=== PATIENT | male | born 1955 | race Asian ===

== ENCOUNTER 2021-06-24 15:09 | Emergency (ER) | payer OTHER ==
--- NOTE | 2021-06-24 16:17 | RAD REPORT ---
EXAM DESCRIPTION: CT - Head Brain Wo Cont - 06/24/2021 4:04 pm CLINICAL HISTORY: HEADACHE COMPARISON: No comparisons TECHNIQUE: All CT scans are performed using dose optimization technique as appropriate and may inclu de automated exposure control or mA/KV adjustment according to patient size. FINDINGS: No intracranial hemorrhage, hydrocephalus or extra-axial fluid collection.No areas of brai n edema or evidence of midline shift. Ethmoid air cell thickening. The calvarium is intact. IMPRESSION: No acute intracranial abnormality.
[2021-06-24] MEDS ORDERED: ACETAMINOPHEN 500 MG TAB ONE (16:33)
[2021-06-24] MEDS ORDERED: AMLODIPINE 10 MG TAB ONE (17:00)
[2021-06-24 17:04] LABS: RBC Red Blood Cell Count 4.64 M/uL (4.33-5.43)
[2021-06-24 17:05] LABS: Basophils % 0.7 % (0-1.3); Hematocrit 41.3 % (39.6-49.0); Lymphocytes % 28.2 % (15.3-44.8); MPV 7.3 fL (7.6-11.3)
[2021-06-24 17:27] LABS: ALT/SGPT 26 U/L (12-78); AST/SGOT 14 U/L (15-37); Albumin 3.7 g/dL (3.4-5.0); Alkaline Phosphatase 49 U/L (45-117); BUN Blood Urea Nitrogen 21 mg/dL (7-18); Bicarbonate 29 mmol/L (21-32); Bilirubin Direct < 0.1 mg/dL (0-0.2); Bilirubin Total 0.3 mg/dL (0.2-1.0); Glucose Level 138 mg/dL (74-106); Magnesium 2.8 mg/dL (1.8-2.4); Potassium 4.5 mmol/L (3.5-5.1); Protein, Total 7.7 g/dL (6.4-8.2); Sodium Level 142 mmol/L (136-145)
[2021-06-24] MEDS ORDERED: NA CHLORIDE 0.9% 500 ML ONE (17:41)
--- NOTE | 2021-06-24 18:11 | ER ---
Nurse's Notes [facility] Name: Rojas Mario Age: 66 yrs Sex: Male : 1955 Arrival Date: 06/24/2021 Time: 15:11 Bed 11 Private MD: Diagnosis: Headache;Hypertensive heart disease without heart failure Presentation: 06/24 15:19 Chief complaint: Patient states: Discomfort to top of head that began yesterday. Denies ss nausea/ dizziness. Coronavirus screen: Client denies travel out of the [place] in the last 14 days. Ebola Screen: Patient denies exposure to infectious person. Patient denies travel to an Ebola-affected area in the 21 days before illness onset. Initial Sepsis Screen: Does the patient meet any 2 criteria? No. Patient's initial sepsis screen is negative. Does the patient have a suspected source of infection? No. Patient's initial sepsis screen is negative. Risk Assessment: Do you want to hurt yourself or someone else? Patient reports no desire to harm self or others. Onset of symptoms was June 23, 2021. 15:19 Method Of Arrival: Ambulatory ss 15:19 Acuity: MONSTER 3 ss Historical: - Allergies: 15:20 No Known Allergies; ss - Home Meds: 15:20 Unknown BP medication [Active]; ss - PMHx: 15:20 Hypertensive disorder; ss - PSHx: 15:20 Cholecystectomy; ss - Immunization history:: Client reports receiving the 2nd dose of the Covid vaccine. - Social history:: Smoking status: Patient denies any tobacco usage or history of. Screenin:34 VAN Screening: Arm Drift: Patient shows no arm weakness. Visual Disturbance: No visual ss disturbance noted. Aphasia: No aphasia noted. Neglect: No neglect noted. 16:00 Abuse screen: Denies threats or abuse. Nutritional screening: No deficits noted. tw2 Tuberculosis screening: No symptoms or risk factors identified. Fall Risk None identified. Assessment: 15:34 Reassessment: Verbal order received from FARHAD Hayes to order CT head without ss contrast. Pt and family member notified of wait time and placed out in lobby. Ambulated with steady gait. VAN scoring negative. 15:56 General: Appears in no apparent distress. Behavior is calm, cooperative, appropriate tw2 for age. Pain: Complains of pain in top of head, left frontal area and right frontal area. Neuro: Level of Consciousness is awake, alert, obeys commands, Oriented to person, place, time, situation. Neuro: Garment Form Assembler are equal bilaterally Gait is steady, Speech is normal. Cardiovascular: Patient's skin is warm and dry. Respiratory: Airway is patent Respiratory effort is even, unlabored, Respiratory pattern is regular, symmetrical. GI: No signs and/or symptoms were reported involving the gastrointestinal system. Derm: Skin is healthy with good turgor, Skin is dry, Skin temperature is warm. 16:26 Reassessment: Patient appears in no apparent distress at this time. No changes from tw2 previously documented assessment. Patient and/or family updated on plan of care and expected duration. Pain level reassessed. Patient is alert, oriented x 3, equal unlabored respirations, skin warm/dry/pink. provider at bedside at this time. updating POC. 17:47 Reassessment: Patient appears in no apparent distress at this time. No changes from tw2 previously documented assessment. Patient and/or family updated on plan of care and expected duration. Pain level reassessed. Patient is alert, oriented x 3, equal unlabored respirations, skin warm/dry/pink. 18:31 Reassessment: Patient appears in no apparent distress at this time. No changes from tw2 previously documented assessment. Patient and/or family updated on plan of care and expected duration. Pain level reassessed. Patient is alert, oriented x 3, equal unlabored respirations, skin warm/dry/pink. Vital Signs: 15:19 BP 162 / 97; Pulse 79; Resp 16; Temp 98.3(TE); Pulse Ox 100% on R/A; Weight 81.65 kg; ss Height 5 ft. 6 in. (167.64 cm); Pain 4/10; 16:19 BP 141 / 92; Pulse 66; Resp 18; Pulse Ox 99% on R/A; tw2 17:40 BP 141 / 195; Pulse 54; Resp 17; Pulse Ox 99% on R/A; tw2 17:47 BP 132 / 92; Pulse 57; Resp 17; Pulse Ox 99% on R/A; tw2 18:31 BP 139 / 84; Pulse 65; Resp 17; Pulse Ox 100% on R/A; tw2 15:19 Body Mass Index 29.05 (81.65 kg, 167.64 cm) NIH Stroke Scale Scores: 15:34 NIHSS Score: 0 ED Course: 15:11 Patient arrived in ED. am2 15:20 Triage completed. ss 15:20 Arm band placed on left wrist. ss 15:56 Bed in low position. Call light in reach. Adult w/ patient. Pulse ox on. NIBP on. tw2 15:59 Dandre Khalil PA is PHCP. cp 15:59 Zoran De Los Santos MD is Attending Physician. cp 16:00 Jane Prince RN is Primary Nurse. tw2 16:03 CT Head Brain wo Cont In Process Unspecified. EDMS 16:40 Inserted saline lock: 20 gauge in right antecubital area, using aseptic technique. tw2 Blood collected. 18:32 No provider procedures requiring assistance completed. IV discontinued, intact, tw2 bleeding controlled, No redness/swelling at site. Pressure dressing applied. Administered Medications: 16:40 Drug: Tylenol 1000 mg Route: PO; tw2 17:47 Follow up: Response: No adverse reaction tw2 17:05 Drug: amLODIPine 10 mg Route: PO; tw2 18:31 Follow up: Response: No adverse reaction tw2 17:46 Drug: NS 0.9% 500 ml Route: IV; Rate: bolus; Site: right antecubital; tw2 18:31 Follow up: Response: No adverse reaction; IV Status: Completed infusion; IV Intake: tw2 500ml Intake: 18:31 IV: 500ml; Total: 500ml. tw2 Outcome: 18:10 Discharge ordered by . cp 18:32 Discharged to home ambulatory, with family. tw2 18:32 Condition: stable 18:32 Discharge instructions given to patient, family, Instructed on discharge instructions, follow up and referral plans. Demonstrated understanding of instructions, follow-up care. 18:32 Patient left the ED. tw2 NIH Stroke Scale - NIH Stroke Score Date: 06/24/2021 Time: 15:34 Total Score = 0 1a. Level of Consciousness (LOC) - 0(Alert) 1b. Level of Consciousness (LOC) (Month \T\ Age) - 0(Both) 1c. LOC Commands (Open \T\ Closes Eyes/Heel Packer) - 0(Both) 2. Best Gaze (Lateral Gaze Paresis) - 0(Normal) 3. Visual Field Loss - 0(No visual loss) 4. Facial Palsy - 0(Normal) 5a. Left Arm: Motor (10-second hold) - 0(No drift) 5b. Right Arm: Motor (10-second hold) - 0(No drift) 6a. Left Leg: Motor (5-second hold - always test supine) - 0(No drift) 6b. Right Leg: Motor (5-second hold - always test supine) - 0(No drift) 7. Limb Ataxia (finger/nose \T\ heel/robert - test with eyes open) - 0(Absent) 8. Sensory Loss (pinprick arms/legs/face) - 0(Normal) 9. Best Language: Aphasia (description/naming/reading) - 0(No aphasia) 10. Dysarthria (speech clarity - read or repeat words) - 0(Normal) 11. Extinction and Inattention (visual/tactile/auditory/spatial/personal) - 0(No abnormality) Initials: Signatures: Dispatcher [employer] Kalli Palm RN RN ss Dandre Khalil PA PA cp Wise, Tara, RN RN tw2 Alexa Jaimes am2
--- NOTE | 2021-06-24 18:12 | EDPHYS ---
Physician Documentation [facility] Name: Rojas Mario Age: 66 yrs Sex: Male : 1955 Arrival Date: 06/24/2021 Time: 15:11 Bed 11 Private MD: ED Physician Zoran De Los Santos HPI: 06/24 16:30 This 66 yrs old Male presents to ER via Ambulatory with complaints of head pain. cp 16:30 The patient complains of pain to the top of head. cp 16:30 Onset: The symptoms/episode began/occurred yesterday. cp 16:30 The patient describes the headache as a pressure. Associated signs and symptoms: The cp patient has no apparent associated signs or symptoms. 16:30 Severity of symptoms: in the emergency department the pain has improved, a " 4" out of cp "10". 16:30 History translated by son. cp Historical: - Allergies: 15:20 No Known Allergies; ss - Home Meds: 15:20 Unknown BP medication [Active]; ss - PMHx: 15:20 Hypertensive disorder; ss - PSHx: 15:20 Cholecystectomy; ss - Immunization history:: Client reports receiving the 2nd dose of the Covid vaccine. - Social history:: Smoking status: Patient denies any tobacco usage or history of. ROS: 16:35 Neuro: Positive for headache, of the top of head, Negative for altered mental status, cp dizziness, numbness, syncope, visual changes. 16:35 Eyes: Negative for injury, pain, redness, and discharge. cp 16:35 Constitutional: Negative for body aches, chills, fever, poor PO intake. 16:35 ENT: Negative for ear pain, sore throat, difficulty swallowing, difficulty handling secretions. 16:35 Neck: Negative for pain with movement, pain at rest, stiffness. 16:35 Cardiovascular: Negative for chest pain, edema, palpitations. 16:35 Respiratory: Negative for cough, shortness of breath, wheezing. 16:35 Abdomen/GI: Negative for abdominal pain, nausea, vomiting, and diarrhea. 16:35 Back: Negative for pain at rest, pain with movement. 16:35 All other systems are negative. Exam: 16:40 Constitutional: The patient appears in no acute distress, alert, awake, cp non-diaphoretic, non-toxic, well developed, well nourished. 16:40 Head/Face: Normocephalic, atraumatic. cp 16:40 Eyes: Periorbital structures: appear normal, Pupils: equal, round, and reactive to light and accomodation, Extraocular movements: intact throughout, Conjunctiva: normal, no exudate, no injection, Sclera: no appreciated abnormality, Lids and lashes: appear normal, bilaterally. 16:40 ENT: External ear(s): are unremarkable, Ear canal(s): are normal, clear, TM's: dullness, bilaterally, Nose: is normal, Mouth: Lips: moist, Oral mucosa: moist, Posterior pharynx: Airway: no evidence of obstruction, patent. 16:40 Neck: C-spine: vertebral tenderness, is not appreciated, crepitus, is not appreciated, ROM/movement: is normal, is supple, without pain, no range of motions limitations, no nuchal rigidity. 16:40 Chest/axilla: Inspection: normal. 16:40 Cardiovascular: Rate: normal, Rhythm: regular, Edema: is not appreciated, JVD: is not appreciated. 16:40 Respiratory: the patient does not display signs of respiratory distress, Respirations: normal, no use of accessory muscles, no retractions, labored breathing, is not present, Breath sounds: are clear throughout, no decreased breath sounds, no stridor, no wheezing. 16:40 Abdomen/GI: Exam negative for discomfort, distension, guarding, Inspection: abdomen appears normal. 16:40 Neuro: Orientation: to person, place \\T\\ time. Mentation: is normal, Cerebellar function: Romberg testing is negative, Motor: moves all fours, strength is normal, Sensation: is normal. 17:08 ECG was reviewed by the Attending Physician. cp Vital Signs: 15:19 BP 162 / 97; Pulse 79; Resp 16; Temp 98.3(TE); Pulse Ox 100% on R/A; Weight 81.65 kg; ss Height 5 ft. 6 in. (167.64 cm); Pain 4/10; 16:19 BP 141 / 92; Pulse 66; Resp 18; Pulse Ox 99% on R/A; tw2 17:40 BP 141 / 195; Pulse 54; Resp 17; Pulse Ox 99% on R/A; tw2 17:47 BP 132 / 92; Pulse 57; Resp 17; Pulse Ox 99% on R/A; tw2 18:31 BP 139 / 84; Pulse 65; Resp 17; Pulse Ox 100% on R/A; tw2 15:19 Body Mass Index 29.05 (81.65 kg, 167.64 cm) ss NIH Stroke Scale Scores: 15:34 NIHSS Score: 0 ss MDM: 16:16 Patient medically screened. cp 17:00 Differential diagnosis: hyponatremia, intracerebral hemorrhage, migraine, neoplasm, cp sinusitis, tension headache. 18:10 Data reviewed: vital signs, nurses notes, lab test result(s), EKG, radiologic studies, cp CT scan. 18:10 Test interpretation: by ED physician or midlevel provider: ECG. Counseling: I had a cp detailed discussion with the patient and/or guardian regarding: the historical points, exam findings, and any diagnostic results supporting the discharge/admit diagnosis, the presence of at least one elevated blood pressure reading (>120/80) during this emergency department visit, lab results, the need for outpatient follow up, a family practitioner, an surveillance system monitor, to return to the emergency department if symptoms worsen or persist or if there are any questions or concerns that arise at home. Response to treatment: the patient's symptoms have markedly improved after treatment, and as a result, I will discharge patient. 06/24 16:29 Order name: Basic Metabolic Panel; Complete Time: 17:31 06/24 17:31 Interpretation: Normal except: CL 108; GLUC 138; BUN 21; GFR 76. 06/24 16:29 Order name: CBC with Diff; Complete Time: 17:31 06/24 15:34 Order name: CT Head Brain wo Cont; Complete Time: 16:20 ss 06/24 16:29 Order name: LFT's; Complete Time: 17:31 06/24 16:29 Order name: Magnesium; Complete Time: 17:31 06/24 16:29 Order name: EKG; Complete Time: 16:30 06/24 16:29 Order name: Cardiac monitoring; Complete Time: 17:05 06/24 16:29 Order name: EKG - Nurse/Tech; Complete Time: 17:05 06/24 16:29 Order name: IV Saline Lock; Complete Time: 17:05 06/24 16:29 Order name: Labs collected and sent; Complete Time: 17:05 cp 06/24 16:29 Order name: O2 Per Protocol; Complete Time: 16:32 cp 06/24 16:29 Order name: O2 Sat Monitoring; Complete Time: 16:32 cp EC:08 Rate is 57 beats/min. Rhythm is regular. KS interval is prolonged at 250 msec. QRS cp interval is normal. QT interval is normal. Interpreted by me. Reviewed by me. Administered Medications: 16:40 Drug: Tylenol 1000 mg Route: PO; tw2 17:47 Follow up: Response: No adverse reaction tw2 17:05 Drug: amLODIPine 10 mg Route: PO; tw2 18:31 Follow up: Response: No adverse reaction tw2 17:46 Drug: NS 0.9% 500 ml Route: IV; Rate: bolus; Site: right antecubital; tw2 18:31 Follow up: Response: No adverse reaction; IV Status: Completed infusion; IV Intake: tw2 500ml Disposition: 06/25 07:15 Co-signature as Attending Physician, Zoran De Los Santos MD I agree with the assessment and kdr plan of care. Disposition Summary: 06/24/21 18:10 Discharge Ordered Location: Home cp Problem: new cp Symptoms: have improved cp Condition: Stable cp Diagnosis - Headache cp - Hypertensive heart disease without heart failure cp Followup: cp - With: Private Physician - When: 2 - 3 days - Reason: Recheck today's complaints Discharge Instructions: - Discharge Summary Sheet cp - General Headache Without Cause cp - How to Take Your Blood Pressure, [id number] cp - Form - Blood Pressure Record Sheet cp - Aspirin and Your Heart cp Forms: - Medication Reconciliation Form cp - Thank You Letter cp - Antibiotic Education cp - Prescription Opioid Use cp NIH Stroke Scale - NIH Stroke Score Date: 06/24/2021 Time: 15:34 Total Score = 0 1a. Level of Consciousness (LOC) - 0(Alert) 1b. Level of Consciousness (LOC) (Month \\T\\ Age) - 0(Both) 1c. LOC Commands (Open \\T\\ Closes Eyes/Emblem Cutter) - 0(Both) 2. Best Gaze (Lateral Gaze Paresis) - 0(Normal) 3. Visual Field Loss - 0(No visual loss) 4. Facial Palsy - 0(Normal) 5a. Left Arm: Motor (10-second hold) - 0(No drift) 5b. Right Arm: Motor (10-second hold) - 0(No drift) 6a. Left Leg: Motor (5-second hold - always test supine) - 0(No drift) 6b. Right Leg: Motor (5-second hold - always test supine) - 0(No drift) 7. Limb Ataxia (finger/nose \\T\\ heel/robert - test with eyes open) - 0(Absent) 8. Sensory Loss (pinprick arms/legs/face) - 0(Normal) 9. Best Language: Aphasia (description/naming/reading) - 0(No aphasia) 10. Dysarthria (speech clarity - read or repeat words) - 0(Normal) 11. Extinction and Inattention (visual/tactile/auditory/spatial/personal) - 0(No abnormality) Initials: ss Signatures: Dispatcher [employer] Zoran Foster MD MD kdr Smirch, Shelby, RN RN ss Dandre Khalil PA PA cp Wise, Tara RN RN tw2
[2021-06-24 18:38] VITALS: TEMP 98.3
[2021-06-24 18:43] VITALS: BP 139/84; O2SAT 100
--- NOTE | 2021-06-25 13:19 | EKG ---
Test Date: 2021-06-24 Test Time: 17:01:14 Insurance Office Manager: DERRICK MEASUREMENT RESULTS: Intervals: Rate: 57 KS: 250 QRSD: 92 QT: 404 QTc: 393 [place]: P: 35 KS: 250 QRS: 24 T: 29 INTERPRETIVE STATEMENTS: Sinus bradycardia with 1st degree AV block Otherwise normal ECG No previous ECG available for comparison Electronically Signed On 06-25-21 13:16:25 MANAGER PROCESS EXCELLENCE by Prakash White
== END 2021-06-24 18:32 | disposition home or self-care (01) ==
LOC: ER 15:09
DX: I11.9 Hypertensive heart disease without heart failure (principal); I10 Essential (primary) hypertension
CPT/HCPCS: 93005; 85025; 80048; 36415; 83735; 80076; 70450; 96360; 99284; J7040

== ENCOUNTER 2022-12-18 13:47 | Emergency (ER) | payer OTHER ==
[2022-12-18] MEDS ORDERED: cloNIDine HCL 0.1 MG TAB ONE (14:28)
[2022-12-18] MEDS ORDERED: PANTOPRAZOLE 40MG TABLET PO ONE (14:28)
[2022-12-18] MEDS ORDERED: CEFTRIAXONE 1000 MG/VIAL ONE (14:29)
--- NOTE | 2022-12-18 14:52 | ER ---
Nurse's Notes [facility] Name: Rojas Mario Age: 67 yrs Sex: Male : 1955 Arrival Date: 12/18/2022 Time: 13:47 Bed 15 Private MD: Diagnosis: Acute pharyngitis, unspecified;Gastro-esophageal reflux disease without esophagitis;Essential (primary) hypertension Presentation: 12/18 14:03 Chief complaint: Sore throat x 2-3 days. Coronavirus screen: At this time, the client hb does not indicate any symptoms associated with coronavirus-19. Ebola Screen: No symptoms or risks identified at this time. Initial Sepsis Screen: Does the patient meet any 2 criteria? No. Patient's initial sepsis screen is negative. Does the patient have a suspected source of infection? No. Patient's initial sepsis screen is negative. Risk Assessment: Do you want to hurt yourself or someone else? Patient reports no desire to harm self or others. 14:03 Method Of Arrival: Ambulatory hb 14:05 Onset of symptoms was December 16, 2022. hb 14:05 Acuity: MONSTER 4 hb Historical: - Allergies: 14:04 No Known Allergies; hb - Home Meds: 14:04 unknown BP medication [Active]; hb - PMHx: 14:04 Hypertensive disorder; hb - PSHx: 14:04 Cholecystectomy; hb - Immunization history:: Adult Immunizations up to date. - Social history:: Smoking status: Patient denies any tobacco usage or history of. Screenin:00 [facility] ED Fall Risk Assessment (Adult) History of falling in the last 3 months, kc6 including since admission No falls in past 3 months (0 pts) Confusion or Disorientation No (0 pts) Intoxicated or Sedated No (0 pts) Impaired Gait No (0 pts) Mobility Assist Device Used No (0 pt) Altered Elimination No (0 pt) Score/Fall Risk Level 0 - 2 = Low Risk Oriented to surroundings, Maintained a safe environment, Educated pt \\T\\ family on fall prevention, incl call for assistance when getting out of bed, Assessed \\T\\ reinforced patient's understanding of fall precautions, Hourly rounding (assess needs \\T\\ fall precautionary measures) done. Abuse screen: Denies threats or abuse. Denies injuries from another. Nutritional screening: No deficits noted. Tuberculosis screening: No symptoms or risk factors identified. Assessment: 14:00 General: Appears in no apparent distress. comfortable, Behavior is calm, cooperative, kc6 appropriate for age. Pain: Complains of pain in "sore throat". Neuro: Grossman Agitation-Sedation Scale (RASS): 0 - Alert and Calm Level of Consciousness is awake, alert, obeys commands, Oriented to person, place, time, situation, Appropriate for age. Cardiovascular: Capillary refill < 3 seconds Chest pain is denied. Respiratory: Airway is patent Trachea midline Respiratory effort is even, unlabored, Respiratory pattern is regular, symmetrical, Breath sounds are clear bilaterally. GI: Reports indigestion. : No signs and/or symptoms were reported regarding the genitourinary system. EENT: Throat is reddened bilaterally with gag reflex present. Derm: No signs and/or symptoms reported regarding the dermatologic system. Skin is intact, Skin is pink, warm \\T\\ dry. Musculoskeletal: No signs and/or symptoms reported regarding the musculoskeletal system. Circulation, motion, and sensation intact. Capillary refill < 3 seconds, Range of motion: intact in all extremities. Vital Signs: 14:03 BP 211 / 119; Pulse 76; Resp 16; Temp 97.9(TE); Pulse Ox 99% on R/A; Weight 81.65 kg; hb Height 5 ft. 10 in. ; Pain 3/10; 14:45 BP 176 / 120; Pulse 86; Resp 19 S; Pulse Ox 98% on R/A; kc6 14:03 Body Mass Index 25.83 (81.65 kg, 177.8 cm) hb 14:03 Pain Scale: Adult hb ED Course: 13:48 Patient arrived in ED. am2 13:50 Angelina Antunez FNP-C is [facility]. snw 13:50 Zoran De Los Santos MD is Attending Physician. snw 13:52 Sharifa Veras RN is Primary Nurse. kc6 14:00 Patient has correct armband on for positive identification. Bed in low position. Call kc6 light in reach. Side rails up X 1. Adult w/ patient. 14:05 Triage completed. hb 14:05 Arm band placed on. hb 15:00 No provider procedures requiring assistance completed. Patient did not have IV access kc6 during this emergency room visit. Administered Medications: 14:30 Drug: Rocephin (cefTRIAXone) IM 1 grams Route: IM; Site: left deltoid; kc6 15:01 Follow up: Response: No adverse reaction kc6 14:30 Drug: Pantoprazole PO 40 mg Route: PO; kc6 15:01 Follow up: Response: No adverse reaction kc6 14:30 Drug: cloNIDine PO 0.2 mg Route: PO; kc6 15:01 Follow up: Response: No adverse reaction; Blood pressure is lowered kc6 Medication: 15:01 VIS not applicable for this client. kc6 Outcome: 14:52 Discharge ordered by MD. correa 15:00 Discharged to home ambulatory, with family. kc6 15:00 Condition: stable 15:00 Discharge instructions given to patient, family, Instructed on discharge instructions, follow up and referral plans. medication usage, Demonstrated understanding of instructions, follow-up care, medications, Prescriptions given X 3. 15:02 Patient left the ED. kc6 Signatures: Angelina Antunez, AFFILIATE MANAGER-C AFFILIATE MANAGER-Csnw Diane Mesa RN RN Alexa Jaimes Sharifa Butcher RN RN kc6
--- NOTE | 2022-12-18 14:52 | EDPHYS ---
Physician Documentation [facility] Name: Rojas Mario Age: 67 yrs Sex: Male : 1955 Arrival Date: 12/18/2022 Time: 13:47 Bed 15 Private MD: ED Physician Zoran De Los Santos HPI: 12/18 14:10 This 67 yrs old Male presents to ER via Ambulatory with complaints of Sore Throat.snw 14:10 The patient presents with sore throat. The patient describes throat pain as constant, snw dry. Onset: The symptoms/episode began/occurred suddenly, 3 day(s) ago, and became persistent. Associated signs and symptoms: The patient has no apparent associated signs or symptoms. It is unknown whether or not the patient has had similar symptoms in the past. It is unknown whether or not the patient has recently seen a physician. Historical: - Allergies: 14:04 No Known Allergies; hb - Home Meds: 14:04 unknown BP medication [Active]; hb - PMHx: 14:04 Hypertensive disorder; hb - PSHx: 14:04 Cholecystectomy; hb - Immunization history:: Adult Immunizations up to date. - Social history:: Smoking status: Patient denies any tobacco usage or history of. ROS: 14:09 Constitutional: Negative for fever, chills, and weight loss, Eyes: Negative for injury, snw pain, redness, and discharge, ENT: Negative for injury and discharge, + sore throat Neck: Negative for injury, pain, and swelling, Cardiovascular: Negative for chest pain, palpitations, and edema, Respiratory: Negative for shortness of breath, cough, wheezing, and pleuritic chest pain, Abdomen/GI: Negative for abdominal pain, nausea, vomiting, diarrhea, and constipation, Back: Negative for injury and pain, : Negative for injury, bleeding, discharge, and swelling, MS/Extremity: Negative for injury and deformity, Skin: Negative for injury, rash, and discoloration, Neuro: Negative for headache, weakness, numbness, tingling, and seizure, Psych: Negative for depression, anxiety, suicide ideation, homicidal ideation, and hallucinations. Exam: 14:09 Constitutional: This is a well developed, well nourished patient who is awake, alert, snw and in no acute distress. Head/Face: Normocephalic, atraumatic. Eyes: Pupils equal round and reactive to light, extra-ocular motions intact. Lids and lashes normal. Conjunctiva and sclera are non-icteric and not injected. Cornea within normal limits. Periorbital areas with no swelling, redness, or edema. Neck: Trachea midline, no thyromegaly or masses palpated, and no cervical lymphadenopathy. Supple, full range of motion without nuchal rigidity, or vertebral point tenderness. No Meningismus. Chest/axilla: Normal chest wall appearance and motion. Nontender with no deformity. No lesions are appreciated. Cardiovascular: Regular rate and rhythm with a normal S1 and S2. No gallops, murmurs, or rubs. Normal PMI, no JVD. No pulse deficits. Respiratory: Lungs have equal breath sounds bilaterally, clear to auscultation and percussion. No rales, rhonchi or wheezes noted. No increased work of breathing, no retractions or nasal flaring. Abdomen/GI: Soft, non-tender, with normal bowel sounds. No distension or tympany. No guarding or rebound. No evidence of tenderness throughout. Back: No spinal tenderness. No costovertebral tenderness. Full range of motion. Skin: Warm, dry with normal turgor. Normal color with no rashes, no lesions, and no evidence of cellulitis. MS/ Extremity: Pulses equal, no cyanosis. Neurovascular intact. Full, normal range of motion. Neuro: Awake and alert, GCS 15, oriented to person, place, time, and situation. Cranial nerves II-XII grossly intact. Motor strength 5/5 in all extremities. Sensory grossly intact. Cerebellar exam normal. Normal gait. Psych: Awake, alert, with orientation to person, place and time. Behavior, mood, and affect are within normal limits. 14:09 ENT: External ear(s): are unremarkable, Nose: is normal, Mouth: Oral mucosa: dry, Posterior pharynx: erythema, that is moderate, Voice: is normal. Vital Signs: 14:03 BP 211 / 119; Pulse 76; Resp 16; Temp 97.9(TE); Pulse Ox 99% on R/A; Weight 81.65 kg; hb Height 5 ft. 10 in. ; Pain 3/10; 14:45 BP 176 / 120; Pulse 86; Resp 19 S; Pulse Ox 98% on R/A; kc6 14:03 Body Mass Index 25.83 (81.65 kg, 177.8 cm) hb 14:03 Pain Scale: Adult hb MDM: 14:09 Patient medically screened. snw 14:28 Differential diagnosis: Allergic rhinitis, group A strep tonsillitis, influenza, snw laryngitis, pharyngitis, tonsillitis, viral syndrome GERD. Data reviewed: vital signs, nurses notes. Historians other than the Patient: Daughter/Son: Grandson. Counseling: I had a detailed discussion with the patient and/or guardian regarding: the historical points, exam findings, and any diagnostic results supporting the discharge/admit diagnosis, the need for outpatient follow up, for definitive care, to return to the emergency department if symptoms worsen or persist or if there are any questions or concerns that arise at home. Special discussion: I have referred the patient to see his PCP for further evaluation of high blood pressure. Based on the history and exam findings, there is no indication for further emergent testing or inpatient evaluation. I discussed with the patient/guardian the need to see the primary care provider for further evaluation of the symptoms. 12/18 14:42 Order name: Recheck B/P; Complete Time: 14:45 snw Administered Medications: 14:30 Drug: Rocephin (cefTRIAXone) IM 1 grams Route: IM; Site: left deltoid; kc6 15:01 Follow up: Response: No adverse reaction kc6 14:30 Drug: Pantoprazole PO 40 mg Route: PO; kc6 15:01 Follow up: Response: No adverse reaction kc6 14:30 Drug: cloNIDine PO 0.2 mg Route: PO; kc6 15:01 Follow up: Response: No adverse reaction; Blood pressure is lowered kc6 Disposition: 16:45 Co-signature as Attending Physician, Zoran De Los Santos MD I agree with the assessment and kdr plan of care. Disposition Summary: 12/18/22 14:52 Discharge Ordered Location: Home snw Condition: Stable snw Diagnosis - Acute pharyngitis, unspecified snw - Gastro-esophageal reflux disease without esophagitis snw - Essential (primary) hypertension snw Followup: snw - With: Emergency Department - When: As needed - Reason: Worsening of condition Followup: snw - With: Private Physician - When: 1 - 2 days - Reason: Recheck today's complaints, Continuance of care, Re-evaluation by your physician Discharge Instructions: - Discharge Summary Sheet snw - Food Choices for Gastroesophageal Reflux Disease, Adult snw - Hypertension, Adult snw - Pharyngitis snw - Sore Throat snw - Managing Your Hypertension snw - Form - Blood Pressure Record Sheet snw Forms: - Medication Reconciliation Form snw - Thank You Letter snw - Antibiotic Education snw - Prescription Opioid Use snw Prescriptions: - Zyrtec 10 mg Oral Tablet - take 1 tablet by ORAL route once daily As needed; 20 tablet; Refills: 0, snw Product Selection Permitted - Pepcid 20 mg Oral Tablet - take 1 tablet by ORAL route once daily; 20 tablet; Refills: 0, Product snw Selection Permitted - Zithromax 500 mg Oral Tablet - take 1 tablet by ORAL route once daily for 5 days; 5 tablet; Refills: 0, snw Product Selection Permitted Signatures: Zoran De Los Santos MD MD kdr Waters, Shelly, BACK SHOE CUTTER-C BACK SHOE CUTTER-Csnw Diane Mesa, RN RN Sharifa Veras RN RN kc6
[2022-12-18 15:07] VITALS: TEMP 97.9
[2022-12-18 15:08] VITALS: BP 176/120; O2SAT 98
== END 2022-12-18 15:02 | disposition home or self-care (01) ==
LOC: ER 13:47
DX: K21.9 Gastro-esophageal reflux disease without esophagitis (principal); I10 Essential (primary) hypertension
CPT/HCPCS: 96372; 99284; J0696